=== PATIENT | female | born 1955 | race Caucasian/White ===

== ENCOUNTER 2025-08-01 07:19 | Inpatient (IN) | payer MEDICARE, OTHER ==
[~2025-08-01] VITALS: Ht 152.4 cm; Wt 72.1 kg
[2025-08-01] MEDS ORDERED: dexaMETHasone SOD PHOSPHATE 2 ML ONE (09:31)
[2025-08-01] MEDS ORDERED: VANCOMYCIN 1 GM VIAL ONE (09:31)
[2025-08-01] MEDS ORDERED: LIDOCAINE 2%-EPI 1:100,000 30 ML VIAL ONE (09:31)
[2025-08-01] MEDS ORDERED: FENTANYL PF 100MCG/2ML AMPUL ONE (11:58)
[2025-08-01] MEDS ORDERED: ATOR20TA PO (13:22)
[2025-08-01] MEDS ORDERED: PANT40TA2 PO (13:22)
[2025-08-01] MEDS ORDERED: MECL-159 PO (13:22)
[2025-08-01] MEDS ORDERED: ONDANSETRON HCL/PF 4 MG/2 ML VIAL IVP PRN (14:30)
[2025-08-01] MEDS ORDERED: HYDROMORPHONE 1 MG/1 ML DISP.SYRIN IV PRN (14:30)
[2025-08-01] MEDS: IV NS 0.9% 1,000 ML IV SCH (16:29)
[2025-08-01] MEDS: VANCOMYCIN 1 GM in IV D5W 250ml IV SCH (16:29)
[2025-08-01 20:00] VITALS: BP 95/66; TEMP 97.9; O2SAT 94
[2025-08-01] MEDS: ACETAMINOPHEN 325 MG TABLET PO PRN (20:46)
[2025-08-01 20:54] VITALS: BP 108/61; TEMP 97.9; O2SAT 94
[2025-08-02 07:00] VITALS: BP 99/59; TEMP 98.1; O2SAT 96
[2025-08-02] MEDS ORDERED: IV NS 0.9% 1,000 ML IV PRN (08:00)
[2025-08-02] MEDS: PANTOPRAZOLE 40 MG TABLET.DR PO SCH (09:22)
[2025-08-02] MEDS: MECLIZINE HCL 25 MG TABLET PO PRN (09:22)
[2025-08-02] MEDS: ATORVASTATIN 10 MG TABLET PO SCH (09:23)
[2025-08-02] MEDS ORDERED: SODIUM BICARBONATE SYR 50 MEQ/50 ML DISP.SYRIN IV ONE (14:38)
[2025-08-02] MEDS ORDERED: EPINEPHRINE (1:10,000) SYRINGE 1 MG/10 ML DISP.SYRIN IVP ONE (14:38)
[2025-08-02] MEDS ORDERED: LIDOCAINE 2% IJ ONE (14:38)
== END 2025-08-02 14:39 | disposition home or self-care (01) | DRG 141 ==
LOC: DS 07:19 → MED 12:11
PROVIDERS: ADMIT Nurse Practitioner Acute Care; ATTEND Nurse Practitioner Acute Care
PROC: 0NST04Z Reposition Right Mandible with Internal Fixation Device, Open Approach (ICD-10-PCS; 2025-08-01)
PROC: 0N5T0ZZ Destruction of Right Mandible, Open Approach (ICD-10-PCS; 2025-08-01)
PROC: 0NUT07Z Supplement Right Mandible with Autologous Tissue Substitute, Open Approach (ICD-10-PCS; 2025-08-01)
PROC: 0N5V0ZZ Destruction of Left Mandible, Open Approach (ICD-10-PCS; 2025-08-01)
PROC: 0NUT0JZ Supplement Right Mandible with Synthetic Substitute, Open Approach (ICD-10-PCS; 2025-08-01)
PROC: 0NSV04Z Reposition Left Mandible with Internal Fixation Device, Open Approach (ICD-10-PCS; principal; 2025-08-01 09:15)
DX: S02.69XB Fracture of mandible of other specified site, initial encounter for open fracture (principal); D68.69 Other thrombophilia; X58.XXXA Exposure to other specified factors, initial encounter; Y93.9 Activity, unspecified; Y92.009 Unspecified place in unspecified non-institutional (private) residence as the place of occurrence of the external cause; M27.2 Inflammatory conditions of jaws; E78.5 Hyperlipidemia, unspecified; K21.9 Gastro-esophageal reflux disease without esophagitis; D16.5 Benign neoplasm of lower jaw bone; E66.01 Morbid (severe) obesity due to excess calories; Z68.31 Body mass index [BMI] 31.0-31.9, adult
CPT/HCPCS: 87070-TC; 87075-TC; A4223; A4338; C1713; G0378; J0169; J0330; J0690; J1100; J2704; J3010; J3373; J3490; J7030; J7060; J8597